=== PATIENT | female | born 1965 | race Caucasian/White ===

== ENCOUNTER 2016-12-25 15:16 | Emergency (ER) | payer OTHER, BC ==
[~2016-12-25] VITALS: Ht 172.7 cm; Wt 89.0 kg
[~2016-12-25 15:16] MED LIST: ADVAIR HFA120 INHALA IH; BUSPAR; BUSPAR5 MG PO; COUGH DROPS1 EAC1; GUAIFENESIN WI120 M1 PO; KLONOPIN1 MG PO; LEXAPRO20 MG PO; NICOTINE PATCH1 EAC2 TD; PREDNISONE10 MG PO; PREDNISONE20 MG PO; SALINE NASAL SP45 ML; SEROQUEL100 MG PO; SEROQUEL50 MG PO; SPIRIVA1 INHALATI IH; SUBOXONE 2 M1 TABLET PO; TUSSIN CF COUG118 M2; suboxone PO
[2016-12-25] MEDS ORDERED: FLEXERIL10 MG PO (16:38)
[2016-12-25] MEDS ORDERED: MOTRIN800 MG PO (16:38)
[2016-12-25 16:47] VITALS: BP 1052/73
== END 2016-12-25 16:49 | disposition home or self-care (01) ==
LOC: EME 15:16
DX: S16.1XXA Strain of muscle, fascia and tendon at neck level, initial encounter (principal); S39.012A Strain of muscle, fascia and tendon of lower back, initial encounter; V49.40XA Driver injured in collision with unspecified motor vehicles in traffic accident, initial encounter; F17.200 Nicotine dependence, unspecified, uncomplicated
CPT/HCPCS: 99281; 99283

== ENCOUNTER 2017-05-30 22:40 | Emergency (ER) | payer BC ==
[~2017-05-30] VITALS: Ht 172.7 cm; Wt 77.3 kg
[~2017-05-30 22:40] MED LIST changes: +FLEXERIL10 MG PO; +MOTRIN800 MG PO
[2017-05-31] LABS: EOSINOPHIL (%) 0.5 % (0-5); HEMATOCRIT 35.6 % (36.0-46.0); IMMATURE GRANULOCYTE (%) 0.4 % (0.0-0.7); INSTRUMENT ABS NEUTROPHIL CT 6.3 K/uL; LYMPHOCYTE COUNT 1.4 K/uL (1.0-2.8); MCH 30.6 PG (29.0-34.0); MCV 89.9 FL (83-99); MEAN PLAT.VOLUME 10.1 uM^3 (9.5-12.4); MONOCYTE (%) 5.3 % (3-12); MONOCYTE COUNT 0.4 K/uL (0-0.8); NEUTROPHIL (%) 76.9 % (45-76); NEUTROPHIL COUNT 6.3 K/uL (1.8-6.4); PLATELET COUNT 298 K/uL (156-360); RBC DIS.WIDTH-CV 12.3 % (11.8-14.6); RBC DIS.WIDTH-SD 40.9 % (39-53); RED BLOOD COUNT 3.96 M/uL (3.80-5.20); WHITE BLOOD COUNT 8.2 K/uL (4.1-10.2)
[2017-05-31 00:13] LABS: CHLORIDE 111 mEq/L (99-109); POTASSIUM 3.6 mEq/L (3.7-5.4); SODIUM 143 mEq/L (136-147)
[2017-05-31 00:15] LABS: GLUCOSE 118 mg/dL (70-99)
[2017-05-31 00:16] LABS: ANION GAP 10 MEQ/L (2-14)
[2017-05-31 00:17] LABS: TOTAL BILIRUBIN 0.2 mg/dL (0.0-1.0)
[2017-05-31 00:18] LABS: SERUM ETHYL ALCOHOL < 10 mg/dL
[2017-05-31 00:19] LABS: ALKALINE PHOSPHATASE 60 IU/L (3-129); GFR ESTIMATE (CALCULATED) > 59 mL/min/
[2017-05-31 00:21] LABS: UREA NITROGEN (BUN) 15 mg/dL (9-23)
[2017-05-31 00:22] LABS: SALICYLATE 8.2 MG/DL (15-30)
[2017-05-31 00:23] LABS: CREATINE KINASE 113 IU/L (1-294)
[2017-05-31 00:38] LABS: ADD MIUA? NO; BILIRUBIN NEGATIVE; BLOOD NEGATIVE; COLOR YELLOW ((YELLOW)); GLUCOSE (STRIP) NEGATIVE; KETONES 20; LEUKOCYTES NEGATIVE; NITRITE NEGATIVE; PROTEIN (STRIP) NEGATIVE; SPECIFIC GRAVITY 1.015 (1.000-1.030); UROBILINOGEN 0.2 MG/DL (0.2-1.0)
[2017-05-31 00:47] LABS: ADD MEDTOX COMMENT Y; AMPHETAMINE NEGATIVE (500 ng/mL); BARBITURATES NEGATIVE (200 ng/mL); BENZODIAZEPINES PRESUMPTIVE POSITIVE (150 ng/mL); COCAINE NEGATIVE (150 ng/mL); INTERNAL CONTROLS VALID? YES; METHADONE NEGATIVE (200 ng/mL); METHAMPHETAMINE NEGATIVE (500 ng/mL); OPIATES (MORPHINE) NEGATIVE (100 ng/mL); OXYCODONE NEGATIVE (100 ng/mL); PHENCYCLIDINE NEGATIVE (25 ng/mL); PROPOXYPHENE NEGATIVE (300 ng/mL); THC CANNABINOIDS NEGATIVE (50 ng/mL); TRICYCLIC ANTIDEPRESSANTS PRESUMPTIVE POSITIVE (300 ng/mL)
[2017-05-31 01:09] LABS: BICARBONATE 26.5 mEq/L (22-26); CARBOXY HGB 1.6 % (0-5); COMMENTS - BLOOD GASES C+; FI02 21 %; METHEMOGLOBIN 0.8 % (0-1.5); PCO2 40 mm Hg (35-45); PO2 70 mm Hg (80-100); SITE RR; pH 7.43 (7.35-7.45)
[2017-05-31 01:10] LABS: TOTAL RESP RATE 14 resp/min
[2017-05-31 01:17] LABS: UCUL ADDED? NO
[2017-05-31 02:52] LABS: BENZODIAZEPINES, URINE SCREEN POSITIVE (200 ng/mL)
[2017-05-31] MEDS ORDERED: TESSALON PERLE100 MG PO (06:28)
[2017-05-31] MEDS ORDERED: MOTRIN600 MG PO (06:28)
[2017-05-31 06:56] VITALS: BP 123/87
== END 2017-05-31 07:01 | disposition home or self-care (01) ==
LOC: EME 22:40
PROVIDERS: Emergency Medicine
DX: R41.82 Altered mental status, unspecified (principal); R25.8 Other abnormal involuntary movements; T48.1X1A Poisoning by skeletal muscle relaxants [neuromuscular blocking agents], accidental (unintentional), initial encounter; T50.991A Poisoning by other drugs, medicaments and biological substances, accidental (unintentional), initial encounter; J44.9 Chronic obstructive pulmonary disease, unspecified; K21.9 Gastro-esophageal reflux disease without esophagitis; F17.200 Nicotine dependence, unspecified, uncomplicated
CPT/HCPCS: 36600; 70450; 71010; 80053; 81003; 82140; 82550; 82803; 84999; 85025; 93005; 99281; 99285; G0480